=== PATIENT | female | born 1935 | race Caucasian/White ===

== ENCOUNTER 2017-12-11 08:40 | Outpatient (CLI) | payer MEDICARE, BC | END 2017-12-11 08:41 | disposition home or self-care (01) | LOC: BICMAMMO 08:40 | PROVIDERS: ATTEND Internal Medicine | DX: Z12.31 Encounter for screening mammogram for malignant neoplasm of breast (principal) | CPT/HCPCS: 77063; 77067 ==

== ENCOUNTER 2018-03-05 13:23 | Outpatient (CLI) | payer MEDICARE, BC ==
--- NOTE | 2018-03-05 18:20 | ULT ---
RENAL ULTRASOUND History: Renal calculi Comparison: None. Technique: Sagittal and transverse imaging of the kidneys performed. FINDINGS: There is bilateral renal cortical thinning. There appear to be bilateral parenchymal based echogenic foci which may represent nephrocalcinosis. No evidence of hydronephrosis. Right kidney measures 10.0 x 4.0 x 4.9 cm. Left kidney measures 9.3 x 4.2 x 4.8 cm. Urinary bladder is unremarkable. Bilateral ureteral jets are noted. IMPRESSION: 1. Bilaterally, no hydronephrosis. 2. Bilateral nephrolithiasis is suspected. Bilaterally, no evidence of hydronephrosis. POS: [facility]
--- NOTE | 2018-03-05 18:25 | ULT ---
THYROID ULTRASOUND: Date: 03/05/18 HISTORY: Thyroid nodule. COMPARISON: None. TECHNIQUE: Sagittal and transverse imaging of the thyroid gland is performed. FINDINGS: Thyroid isthmus measures 0.2 cm. Right thyroid lobe measures 1.3 x 1.8 x 4.5 cm. Left thyroid lobe measures 1.2 x 3.6 x 1.2 cm. In the mid aspect of the right thyroid lobe, there is a solid nodule measuring 1.6 x 1.2 x 1.0 cm. In the mid aspect of the left thyroid lobe, there is a 1.5 x 0.7 x 1.0 cm solid nodule. In the lower aspect of the thyroid lobe, there is a 0.8 x 0.4 x 0.5 cm solid nodule. IMPRESSION: 1. Solid nodule in the right thyroid lobe has a TIRADS calculator level of TR4. Moderately suspiciou s. Fine needle aspiration is recommended. 2. With regards to the solid nodules in the left thyroid lobe, follow-up imaging in 1 year is recomm ended. POS: [facility]
== END 2018-03-05 13:24 | disposition home or self-care (01) ==
LOC: ULT 13:23
PROVIDERS: ATTEND Internal Medicine
DX: N20.0 Calculus of kidney (principal); E04.2 Nontoxic multinodular goiter
CPT/HCPCS: 76536; 76770

== ENCOUNTER 2018-03-31 12:34 | Day surgery (SDC) | payer MEDICARE, BC ==
[2018-03-30 11:13] VITALS: BMI 27.4
[2018-03-31] MEDS ORDERED: Sodium Bicarbonate 2.5 MEQ/5 ML VIAL ONE (12:46)
[2018-03-31] MEDS ORDERED: Lidocaine 1% PF 5 ML VIAL ONE (12:46)
[2018-03-31 13:57] VITALS: BP 151/60; TEMP 97.9
--- NOTE | 2018-03-31 16:33 | ULT ---
SONOGRAPHIC GUIDED FINE NEEDLE ASPIRATION RIGHT THYROID LOBE MASS: Date 03/31/18 HISTORY: Calcified right thyroid lobe mass. FINDINGS: After explaining the procedure and answering all questions, the calcified lesion at the right thyroid lobe is again visualized. Sterile technique, buffered local anesthesia, sonographic guidance, and a medial approach were used to carefully advance a 25 gauge needle into the calcified mass. Fine needle aspirate was obtained and submitted to pathology for evaluation. A total of four passes were made. P ostprocedure imaging shows no evidence of complication. The patient tolerated the procedure well and was dismissed in good condition. IMPRESSION: Technically successful fine needle aspiration right thyroid lobe mass. Pathology is pending. POS: [facility]
== END 2018-03-31 13:40 | disposition home or self-care (01) ==
LOC: ULT 12:34
PROVIDERS: ATTEND Otolaryngology Plastic Surgery within the Head & Neck
PROC: 0G9H3ZX Drainage of Right Thyroid Gland Lobe, Percutaneous Approach, Diagnostic (ICD-10-PCS; principal; 2018-03-31)
DX: E04.1 Nontoxic single thyroid nodule (principal); J32.9 Chronic sinusitis, unspecified; E78.00 Pure hypercholesterolemia, unspecified; I10 Essential (primary) hypertension; M19.90 Unspecified osteoarthritis, unspecified site; E03.9 Hypothyroidism, unspecified; K21.9 Gastro-esophageal reflux disease without esophagitis; J30.9 Allergic rhinitis, unspecified; Z79.82 Long term (current) use of aspirin; Z79.899 Other long term (current) drug therapy; Z88.5 Allergy status to narcotic agent
CPT/HCPCS: 10022; 76942; 88173; J2001

== ENCOUNTER 2018-10-22 13:49 | Outpatient (CLI) | payer MEDICARE, BC ==
--- NOTE | 2018-10-22 14:28 | RAD ---
EXAM: XR Lumbar Spine 2 Or 3 View PROVIDED CLINICAL HISTORY: Low back pain COMPARISON: None FINDINGS: There are 5 nonrib-bearing lumbar-type vertebral bodies. The lateral view is rotated, there does appe ar to be slight grade 1 anterolisthesis of L4 on L5. There also appear to be slight retrolisthesis of L3 on L4. The vertebral body heights are within normal limits. There is mild narrowing of the inte rvertebral disc spaces at all levels lumbar spine with scattered osteophytes and facet degenerative changes present. No fracture is seen. Vascular calcifications are seen in the normal aorta and iliac arteries. Surgical clips overlie the upper abdomen on the lateral view as well as right lower quadrant. There is a circumscribed 10 mm oval-shaped calcification overlying the right upper quadrant . This cannot be further localized but does overlie the superior pole right renal shadow. The patient has had evidence of prior cholecystectomy on CT exam in 2008. This calcification was not seen on that study. IMPRESSION: 1. Oval-shaped calcification overlying the right upper quadrant which is difficult to further localiz e. Patient has had prior cholecystectomy. Calcification does overlie the superior pole right renal shadow. 2. Degenerative changes of the lumbar spine with grade 1 slight anterolisthesis of L4 on L5 and trace retrolisthesis of L3 on L4.
== END 2018-10-22 13:50 | disposition home or self-care (01) ==
LOC: RAD 13:49
PROVIDERS: ATTEND Internal Medicine
DX: M54.5 Low back pain (principal); N28.89 Other specified disorders of kidney and ureter; M47.816 Spondylosis without myelopathy or radiculopathy, lumbar region; M43.16 Spondylolisthesis, lumbar region; Z98.890 Other specified postprocedural states
CPT/HCPCS: 72100

== ENCOUNTER 2019-03-16 15:03 | Outpatient (CLI) | payer MEDICARE, BC ==
--- NOTE | 2019-03-16 15:43 | MMO ---
Bilateral MAMMO Bilat Screen [facility]. CLINICAL HISTORY: Patient is 83 years old and is seen for screening. The patient has no family history of breast cancer. The patient has no personal history of cancer. The patient has a history of right Excisional Biopsy - benign. VIEWS: The views performed were: bilateral craniocaudal with tomosynthesis and bilateral mediolateral oblique with tomosynthesis. FILMS COMPARED: The present examination has been compared to a prior imaging study performed at [facility] on 12/11/2017. This study has been interpreted with the assistance of computer-aided detection. MAMMOGRAM FINDINGS: There are scattered fibroglandular densities. Finding 1: There is an area of architectural distortion with associated post-surgical scar seen in the right breast. Finding 2: There are stable benign appearing calcifications seen in both breasts. Finding 3: There are stable benign appearing calcifications seen in both breasts. There are also vascular calcifications. There are no suspicious masses, suspicious calcifications, or new areas of architectural distortion. IMPRESSION: THERE IS NO MAMMOGRAPHIC EVIDENCE OF MALIGNANCY. A ROUTINE FOLLOW-UP MAMMOGRAM IN 1 YEAR IS RECOMMENDED. THE RESULTS OF THIS EXAM WERE SENT TO THE PATIENT. ACR BI-RADS Category 2 - Benign finding MAMMOGRAPHY NOTE: 1. A negative mammogram report should not delay a biopsy if a dominant of clinically suspicious mass is present. 2. Approximately 10% to 15% of breast cancers are not detected by mammography. 3. Adenosis and dense breasts may obscure an underlying neoplasm. Reported by: ABDOUL TAYLOR MD Electonically Signed: [id number]
== END 2019-03-16 15:04 | disposition home or self-care (01) ==
LOC: BICMAMMO 15:03
PROVIDERS: ATTEND Internal Medicine
DX: Z12.31 Encounter for screening mammogram for malignant neoplasm of breast (principal); Z91.89 Other specified personal risk factors, not elsewhere classified
CPT/HCPCS: 77063; 77067

== ENCOUNTER 2020-03-21 13:20 | Outpatient (CLI) | payer MEDICARE, BC ==
--- NOTE | 2020-03-21 14:34 | MMO ---
Bilateral MAMMO Bilat Screen [facility]. CLINICAL HISTORY: Patient is 84 years old and is seen for screening. The patient has no family history of breast cancer. The patient has no personal history of cancer. The patient has a history of right Excisional Biopsy - benign. VIEWS: The views performed were: bilateral craniocaudal with tomosynthesis and bilateral mediolateral oblique with tomosynthesis. FILMS COMPARED: The present examination has been compared to prior imaging studies performed at [facility] on 12/11/2017 and 03/16/2019, and at [facility] on 04/06/2015 and 06/06/2016. This study has been interpreted with the assistance of computer-aided detection. MAMMOGRAM FINDINGS: There are scattered fibroglandular densities. There are benign appearing calcifications seen in both breasts. Post op changes on right are stable. There are no suspicious masses, suspicious calcifications, or new areas of architectural distortion. IMPRESSION: THERE IS NO MAMMOGRAPHIC EVIDENCE OF MALIGNANCY. A ROUTINE FOLLOW-UP MAMMOGRAM IN 1 YEAR IS RECOMMENDED. THE RESULTS OF THIS EXAM WERE SENT TO THE PATIENT. ACR BI-RADS Category 2 - Benign finding MAMMOGRAPHY NOTE: 1. A negative mammogram report should not delay a biopsy if a dominant of clinically suspicious mass is present. 2. Approximately 10% to 15% of breast cancers are not detected by mammography. 3. Adenosis and dense breasts may obscure an underlying neoplasm. Reported by: SPENSER SPARROW MD Electonically Signed: [id number]
== END 2020-03-21 13:21 | disposition home or self-care (01) ==
LOC: BICMAMMO 13:20
PROVIDERS: ATTEND Physician Assistant
DX: Z12.31 Encounter for screening mammogram for malignant neoplasm of breast (principal); Z91.89 Other specified personal risk factors, not elsewhere classified
CPT/HCPCS: 77063; 77067

== ENCOUNTER 2021-02-27 04:43 | Inpatient (IN) | payer MEDICARE, BC ==
[2021-02-27] MEDS ORDERED: Pantoprazole 40 MG VIAL ONE (05:08)
[2021-02-27 05:40] LABS: #Eosinphils 0.3 thou/uL (0.0-0.7); #Lymphocytes 2.1 thou/uL (1.20-3.40); #Monocytes 0.6 thou/uL (0.11-0.59); #Neutrophils 6.8 thou/uL (1.40-6.50); %Basophils 0.3 % (0.0-1.0); %Eosinophils 2.8 % (0.0-10.0); %Lymphocytes 21.7 % (21.0-51.0); %Monocytes 6.2 % (0.0-10.0); Hemoglobin 9.3 g/dL (12.0-16.0); Mean Corpuscular HGB CONC 32.4 g/dL (32.0-36.0); Mean Corpuscular Volume 95.5 fL (78.0-98.0); Mean Platelet Volume 7.6 fL (7.4-10.4); Platelet Count 270 thou/uL (130-400); RBC Distribution Width 12.5 % (11.5-14.5); White Blood Cell (WBC) Count 9.9 thou/uL (4.8-10.8)
[2021-02-27 05:51] LABS: INR-International Normal Ratio 1.1; PTT 27.1 sec (22.9-36.1); Prothrombin Time 14.7 sec (12.0-14.7)
[2021-02-27 05:55] LABS: ALT (SGPT) 12 U/L (8-55); AST (SGOT) 17 U/L (5-34); Alkaline Phosphatase 39 U/L (40-110); Anion Gap 9 mmol/L (10-20); BUN (Urea Nitrogen) 50 mg/dL (9.8-20.1); Bilirubin, Total 0.4 mg/dL (0.2-1.2); Calc. Creatinine Clearance 0 mL/min (70-130); Calcium 8.2 mg/dL (7.8-10.44); Carbon Dioxide 22 mmol/L (23-31); Chloride 112 mmol/L (98-107); Glucose 124 mg/dL (83-110); Potassium 4.2 mmol/L (3.5-5.1); Sodium 139 mmol/L (136-145)
[2021-02-27] MEDS ORDERED: Ondansetron PF 4 MG/2 ML Vial IVP PRN (07:51)
[2021-02-27] MEDS ORDERED: Acetaminophen 325 MG TAB PO PRN (07:51)
[2021-02-27] MEDS ORDERED: Pantoprazole 80 MG in Sodium Chloride 0.9% 100 ML IVPB SCH (08:00)
[2021-02-27] MEDS ORDERED: Sodium Chloride 0.9% 1,000 ML IV SCH (08:00)
[2021-02-27 08:42] LABS: Hemoglobin 9.2 g/dL (12.0-16.0)
[2021-02-27 11:43] LABS: SARS-CoV-2 NAA Rapid Test Not Detected (NotDetected)
[2021-02-27] MEDS: Pantoprazole 80 MG, Admixture Fee 1 EACH in Sodium Chloride 0.9% 100 ML IVPB SCH (12:57)
[2021-02-27 15:03] VITALS: BMI 27.3
[2021-02-27 17:51] LABS: Hemoglobin 8.6 g/dL (12.0-16.0)
[2021-02-28] MEDS: Pantoprazole 80 MG, Admixture Fee 1 EACH in Sodium Chloride 0.9% 100 ML IVPB SCH (01:02)
[2021-02-28 07:32] LABS: #Basophils 0.1 thou/uL (0.0-0.2); #Eosinphils 0.1 thou/uL (0.0-0.7); #Lymphocytes 1.6 thou/uL (1.20-3.40); #Monocytes 0.5 thou/uL (0.11-0.59); #Neutrophils 6.7 thou/uL (1.40-6.50); %Basophils 0.6 % (0.0-1.0); %Eosinophils 1.5 % (0.0-10.0); %Monocytes 5.5 % (0.0-10.0); %Neutrophils 74.4 % (42.0-75.0); Mean Corpuscular HGB CONC 33.8 g/dL (32.0-36.0); Mean Corpuscular Hemoglobin 31.9 pg (27.0-31.0); Mean Corpuscular Volume 94.6 fL (78.0-98.0); Mean Platelet Volume 7.9 fL (7.4-10.4); Platelet Count 234 thou/uL (130-400); RBC Distribution Width 12.7 % (11.5-14.5)
[2021-02-28 07:51] LABS: ALT (SGPT) 11 U/L (8-55); AST (SGOT) 17 U/L (5-34); Albumin 3.1 g/dL (3.4-4.8); Alkaline Phosphatase 35 U/L (40-110); Anion Gap 11 mmol/L (10-20); BUN (Urea Nitrogen) 54 mg/dL (9.8-20.1); Bilirubin, Total 0.4 mg/dL (0.2-1.2); Calc. Creatinine Clearance 44 mL/min (70-130); Calcium 8.3 mg/dL (7.8-10.44); Carbon Dioxide 21 mmol/L (23-31); Chloride 117 mmol/L (98-107); Globulin 1.8 g/dL (2.4-3.5); Glucose 141 mg/dL (83-110); Potassium 4.6 mmol/L (3.5-5.1); Protein, Total 4.9 g/dL (5.8-8.1); Sodium 144 mmol/L (136-145)
[2021-02-28] MEDS ORDERED: PROPOFOL 200 MG/20 ML VIAL ONE (10:46)
[2021-02-28] MEDS ORDERED: Midazolam HCl 2 mg/2 ml Vial ONE (10:49)
[2021-02-28] MEDS ORDERED: Ketamine 50 MG/ML (10ML VIAL) ONE (10:49)
[2021-02-28] MEDS ORDERED: Sodium Chloride 0.9% 10 ML ONE (11:27)
[2021-02-28 15:24] LABS: Hemoglobin 8.8 g/dL (12.0-16.0)
[2021-02-28] MEDS: Pantoprazole 40 MG VIAL IVP SCH (21:01)
[2021-02-28 22:04] LABS: Hemoglobin 8.2 g/dL (12.0-16.0)
[2021-03-01 08:21] LABS: #Basophils 0.1 thou/uL (0.0-0.2); #Eosinphils 0.5 thou/uL (0.0-0.7); #Lymphocytes 2.2 thou/uL (1.20-3.40); #Monocytes 0.8 thou/uL (0.11-0.59); #Neutrophils 5.8 thou/uL (1.40-6.50); %Basophils 0.9 % (0.0-1.0); %Eosinophils 5.6 % (0.0-10.0); %Monocytes 8.6 % (0.0-10.0); %Neutrophils 61.9 % (42.0-75.0); Mean Corpuscular Hemoglobin 31.4 pg (27.0-31.0); Mean Corpuscular Volume 92.6 fL (78.0-98.0); Mean Platelet Volume 7.6 fL (7.4-10.4); Platelet Count 208 thou/uL (130-400); Red Blood Cell (RBC) Count 2.53 mill/uL (4.20-5.40); White Blood Cell (WBC) Count 9.3 thou/uL (4.8-10.8)
[2021-03-01 08:37] LABS: Anion Gap 8 mmol/L (10-20); BUN (Urea Nitrogen) 26 mg/dL (9.8-20.1); Calc. Creatinine Clearance 48 mL/min (70-130); Calcium 8.3 mg/dL (7.8-10.44); Carbon Dioxide 24 mmol/L (23-31); Chloride 117 mmol/L (98-107); Glucose 104 mg/dL (83-110); Potassium 4.1 mmol/L (3.5-5.1); Sodium 145 mmol/L (136-145)
[2021-03-01 08:46] VITALS: BP 147/69; TEMP 98.2
[2021-03-01] MEDS: Pantoprazole 40 MG VIAL IVP SCH (08:46)
[2021-03-01] MEDS ORDERED: Rosuvastatin 5 MG TAB PO SCH (21:00)
[2021-03-01] MEDS ORDERED: Metoprolol Tartrate 25 MG TAB PO SCH (21:00)
[2021-03-02] MEDS ORDERED: Amlodipine 5 MG TAB PO SCH (09:00)
== END 2021-03-01 17:24 | disposition home or self-care (01) | DRG 378 ==
LOC: ERS 04:43 → SUATTDRO 04:43 → ERHOLD 06:47 → T4-B 14:39 → OBSVTOIN 02-28 17:49
PROVIDERS: ADMIT Internal Medicine; ATTEND Internal Medicine
PROC: 0DB78ZX Excision of Stomach, Pylorus, Via Natural or Artificial Opening Endoscopic, Diagnostic (ICD-10-PCS; principal; 2021-02-28)
PROC: 30233N1 Transfusion of Nonautologous Red Blood Cells into Peripheral Vein, Percutaneous Approach (ICD-10-PCS; 2021-02-28)
DX: K25.4 Chronic or unspecified gastric ulcer with hemorrhage (principal); D62 Acute posthemorrhagic anemia; Z20.822 Contact with and (suspected) exposure to COVID-19; I10 Essential (primary) hypertension; E78.5 Hyperlipidemia, unspecified; K21.9 Gastro-esophageal reflux disease without esophagitis; I73.9 Peripheral vascular disease, unspecified; K44.9 Diaphragmatic hernia without obstruction or gangrene; Z95.828 Presence of other vascular implants and grafts; Z79.899 Other long term (current) drug therapy; Z79.82 Long term (current) use of aspirin; Z79.02 Long term (current) use of antithrombotics/antiplatelets; Z88.6 Allergy status to analgesic agent; Z87.11 Personal history of peptic ulcer disease
CPT/HCPCS: 36415; 36430; 71045; 74177; 80048; 80053; 82271; 82274; 84484; 85025; 85610; 85730; 86850; 86900; 86901; 88305; 88312; 93005; 93010; 96374; 96376; C9113; G0378; J2250; J2704; J3490; J7050; P9016; U0002

== ENCOUNTER 2021-03-29 12:51 | Outpatient (CLI) | payer MEDICARE, BC | END 2021-03-29 12:52 | disposition home or self-care (01) | LOC: BICMAMMO 12:51 | PROVIDERS: ATTEND Internal Medicine | DX: Z12.31 Encounter for screening mammogram for malignant neoplasm of breast (principal); Z91.89 Other specified personal risk factors, not elsewhere classified | CPT/HCPCS: 77063; 77067 ==

== ENCOUNTER 2021-04-30 09:23 | Emergency (ER) | payer MEDICARE, BC ==
[2021-04-30] MEDS ORDERED: Acetaminophen/Codeine 30-300mg Tablet ONE (11:50)
[2021-04-30 13:44] LABS: Bacteria/HPF 1+ HPF (None Seen); Bilirubin Negative (Negative); Blood, Urine Negative (Negative); Clarity Turbid (Clear); Glucose, Urine (Dipstick) Normal (Negative); Ketone, Urine Negative (Negative); Leukocyte 500 Leu/uL (Negative); Nitrite Negative (Negative); Protein, Urine (Dipstick) 20 mg/dL (Neg-Trace); Specific Gravity, Urine 1.029 (1.002-1.036); Urobilinogen Normal mg/dL (Less than 2); WBC/HPF Greater than 50 HPF (0-3); pH, Urine 5.5 (5.0-9.0)
== END 2021-04-30 14:06 | disposition home or self-care (01) ==
LOC: ERS 09:23
DX: M43.16 Spondylolisthesis, lumbar region (principal); N39.0 Urinary tract infection, site not specified; I10 Essential (primary) hypertension; E78.00 Pure hypercholesterolemia, unspecified; Z79.02 Long term (current) use of antithrombotics/antiplatelets; Z79.82 Long term (current) use of aspirin; Z79.899 Other long term (current) drug therapy
CPT/HCPCS: 72100; 81003; 81015; 87077; 87086; 87186

== ENCOUNTER 2021-05-07 10:22 | Emergency (ER) | payer MEDICARE, BC ==
[2021-05-07] MEDS ORDERED: Acetaminophen/Codeine 30-300mg Tablet ONE (13:48)
== END 2021-05-07 17:25 ==
LOC: ERS 10:22
DX: M54.50 Low back pain, unspecified (principal); R26.2 Difficulty in walking, not elsewhere classified; I10 Essential (primary) hypertension; E78.5 Hyperlipidemia, unspecified; E78.00 Pure hypercholesterolemia, unspecified; Z79.82 Long term (current) use of aspirin; Z79.02 Long term (current) use of antithrombotics/antiplatelets
CPT/HCPCS: 72131; 72192

== ENCOUNTER 2021-06-06 18:15 | Emergency (ER) | payer MEDICARE, BC ==
[2021-06-06] MEDS ORDERED: Morphine 4 MG/ML VIAL ONE (21:16)
[2021-06-06] MEDS ORDERED: Dexamethasone 4 mg/ml Vial ONE (23:10)
== END 2021-06-06 23:15 | disposition home or self-care (01) ==
LOC: ERS 18:15
DX: G89.29 Other chronic pain (principal); M54.50 Low back pain, unspecified; E78.5 Hyperlipidemia, unspecified; I10 Essential (primary) hypertension; Z79.899 Other long term (current) drug therapy; M54.16 Radiculopathy, lumbar region
CPT/HCPCS: 96372; 99283; J1100; J2270

== ENCOUNTER 2021-07-04 08:56 | Outpatient (CLI) | payer MEDICARE, BC ==
[2021-07-04 10:31] LABS: Hemoglobin 13.4 g/dL (12.0-15.5); Mean Corpuscular HGB CONC 31.1 g/dL (32.0-36.0); Mean Corpuscular Hemoglobin 30.1 pg (27.0-33.0); Mean Corpuscular Volume 96.9 fl (81.6-98.3); Mean Platelet Volume 10.2 fl (7.4-10.4); Platelet Count 319 10x3/uL (150-450); RBC Distribution Width 14.8 % (11.5-14.5); Red Blood Cell (RBC) Count 4.45 10x6/uL (3.90-5.03); White Blood Cell (WBC) Count 7.4 10x3/uL (3.5-10.5)
[2021-07-04 10:45] LABS: Anion Gap 15 mmol/L (10-20); BUN (Urea Nitrogen) 16 mg/dL (9.8-20.1); Calc. Creatinine Clearance 0 mL/min (70-130); Calcium 9.3 mg/dL (7.8-10.44); Carbon Dioxide 25 mmol/L (23-31); Chloride 105 mmol/L (98-107); Glucose 90 mg/dL (83-110); Potassium 4.2 mmol/L (3.5-5.1); Sodium 141 mmol/L (136-145)
[2021-07-04 17:42] LABS: SARS-CoV-2 PCR by NAA Not Detected (NotDetected)
== END 2021-07-04 08:57 | disposition home or self-care (01) ==
LOC: LABBT 08:56
PROVIDERS: ATTEND Neurological Surgery
DX: Z01.818 Encounter for other preprocedural examination (principal); M48.062 Spinal stenosis, lumbar region with neurogenic claudication; Z20.822 Contact with and (suspected) exposure to COVID-19
CPT/HCPCS: 80048; 85027; 93005; U0003; U0005; 93010

== ENCOUNTER 2021-07-09 07:53 | Inpatient (IN) | payer MEDICARE, BC ==
[2021-07-09] MEDS ORDERED: ceFAZolin 2 GM/Dextrose 50 ML IVPB ONE (11:44)
[2021-07-09] MEDS ORDERED: Ketamine 50 MG/ML (10ML VIAL) ONE (11:45)
[2021-07-09] MEDS ORDERED: Dexmedetomidine 200 MCG/2 ML VIAL ONE (11:45)
[2021-07-09] MEDS ORDERED: Fentanyl 100 MCG/2 ML VIAL ONE ×2 (11:54→14:00)
[2021-07-09] MEDS ORDERED: Glycopyrrolate 0.2 MG/ML 5 ML SYRINGE ONE (12:00)
[2021-07-09] MEDS ORDERED: Dexamethasone 20 MG/5 ML VIAL ONE (12:00)
[2021-07-09] MEDS ORDERED: Ondansetron PF 4 MG/2 ML Vial ONE (12:00)
[2021-07-09] MEDS ORDERED: Rocuronium Bromide 10 MG/ML (10ML VIAL) ONE (12:00)
[2021-07-09] MEDS ORDERED: PROPOFOL 200 MG/20 ML VIAL ONE (12:00)
[2021-07-09] MEDS ORDERED: Lidocaine 1% PF 5 ML VIAL ONE (12:00)
[2021-07-09] MEDS ORDERED: SUGAMMADEX SODIUM 200 MG/2 ML VIAL ONE (13:09)
[2021-07-09] MEDS ORDERED: Promethazine HCl 25 MG/ML VIAL IM PRN ×2 (13:46→15:45)
[2021-07-09] MEDS ORDERED: Ondansetron HCl/PF 4 MG/2 ML Vial IVP PRN (13:46)
[2021-07-09] MEDS ORDERED: Promethazine HCl 25 MG/ML VIAL IVPB PRN (13:46)
[2021-07-09] MEDS ORDERED: Morphine 4 MG/ML VIAL SLOW IVP PRN ×2 (15:39→15:45)
[2021-07-09] MEDS ORDERED: Ondansetron PF 4 MG/2 ML Vial IM PRN (15:40)
[2021-07-09] MEDS ORDERED: Cyclobenzaprine 10 MG TAB PO PRN (15:45)
[2021-07-09] MEDS ORDERED: Mag-Al 1200 mg/1200 mg/30 ML UDCUP PO PRN (15:45)
[2021-07-09] MEDS ORDERED: Milk Of Magnesia 30 ML UDCUP PO PRN (15:45)
[2021-07-09] MEDS ORDERED: diphenhydrAMINE 25 MG CAP PO PRN (15:45)
[2021-07-09] MEDS ORDERED: diphenhydrAMINE 50 MG/ML VIAL IVP PRN (15:45)
[2021-07-09] MEDS ORDERED: HYDROcodone/Acetaminophen 10/325 mg Tablet PO PRN (15:45)
[2021-07-09] MEDS ORDERED: traMADol HCl 50 MG TAB PO PRN ×2 (15:45)
[2021-07-09] MEDS ORDERED: Promethazine 25 MG TAB PO PRN (15:45)
[2021-07-09] MEDS ORDERED: Promethazine HCl 12.5 MG SUPP PR PRN (15:45)
[2021-07-09 15:48] VITALS: BMI 26.6
[2021-07-09] MEDS: Levothyroxine Sodium 88 MCG TAB PO SCH (16:01)
[2021-07-09] MEDS: Sodium Chloride 0.9% 1,000 ML IV SCH ×2 (16:38→21:21)
[2021-07-09] MEDS: HYDROcodone/Acetaminophen 10/325 mg Tablet PO PRN ×2 (16:46→21:29)
[2021-07-09] MEDS ORDERED: Bisacodyl 5 MG TAB PO PRN (19:11)
[2021-07-09] MEDS ORDERED: Acetaminophen 325 MG TAB PO PRN (19:11)
[2021-07-09] MEDS ORDERED: Ondansetron PF 4 MG/2 ML Vial IVP PRN (19:11)
[2021-07-09] MEDS ORDERED: hydrALAZINE 20 MG/ML VIAL SLOW IVP PRN (19:15)
[2021-07-09] MEDS ORDERED: Melatonin 3 MG TAB PO PRN (19:15)
[2021-07-09] MEDS ORDERED: Senokot S 8.6-50 MG TAB PO SCH (19:30)
[2021-07-09] MEDS ORDERED: Cholecalciferol 1,000 UNITS (25 MCG) TAB PO SCH (21:00)
[2021-07-09] MEDS: ceFAZolin 2 GM/Dextrose 50 ML 2 GM in Premix Bag 1 BAG IVPB SCH (21:21)
[2021-07-09] MEDS: Icosapent Ethyl 1 GM CAPSULE PO SCH (21:23)
[2021-07-09] MEDS: hydrALAZINE 10 MG TAB PO SCH (21:23)
[2021-07-10] MEDS: ceFAZolin 2 GM/Dextrose 50 ML 2 GM in Premix Bag 1 BAG IVPB SCH (03:17)
[2021-07-10] MEDS: HYDROcodone/Acetaminophen 10/325 mg Tablet PO PRN ×3 (03:17→14:41)
[2021-07-10] MEDS: Levothyroxine Sodium 88 MCG TAB PO SCH (06:26)
[2021-07-10] MEDS ORDERED: Vitamin E 400 UNITS CAP PO SCH (09:00)
[2021-07-10] MEDS ORDERED: Multivitamin W/ Minerals 1 TAB PO SCH (09:00)
[2021-07-10] MEDS ORDERED: Senokot S 8.6-50 MG TAB PO SCH (09:00)
[2021-07-10] MEDS ORDERED: Fluticasone Propionate Nasal Spray 16 gm Bottle NASAL SCH (09:00)
[2021-07-10] MEDS ORDERED: Amlodipine 5 MG TAB PO SCH (09:00)
[2021-07-10] MEDS: hydrALAZINE 10 MG TAB PO SCH (10:29)
[2021-07-10] MEDS: Icosapent Ethyl 1 GM CAPSULE PO SCH (10:30)
[2021-07-10 14:29] VITALS: BP 128/69; TEMP 98
== END 2021-07-10 15:27 | DRG 460 ==
LOC: SDC 07:53 → T4-B 14:55 → OBSVTOIN 07-10 09:26
PROVIDERS: ADMIT Neurological Surgery; ATTEND Neurological Surgery
PROC: 0SG1071 Fusion of 2 or more Lumbar Vertebral Joints with Autologous Tissue Substitute, Posterior Approach, Posterior Column, Open Approach (ICD-10-PCS; principal; 2021-07-09)
PROC: 01NB0ZZ Release Lumbar Nerve, Open Approach (ICD-10-PCS; 2021-07-09)
PROC: 3E0U0GB Introduction of Recombinant Bone Morphogenetic Protein into Joints, Open Approach (ICD-10-PCS; 2021-07-09)
DX: M48.062 Spinal stenosis, lumbar region with neurogenic claudication (principal); I10 Essential (primary) hypertension; E78.5 Hyperlipidemia, unspecified; Z20.822 Contact with and (suspected) exposure to COVID-19; K21.9 Gastro-esophageal reflux disease without esophagitis; M47.816 Spondylosis without myelopathy or radiculopathy, lumbar region; E03.9 Hypothyroidism, unspecified; I73.9 Peripheral vascular disease, unspecified; Z96.653 Presence of artificial knee joint, bilateral; Z90.49 Acquired absence of other specified parts of digestive tract
CPT/HCPCS: 76000; 96374; 96376; C1713; G0378; J0690; J1100; J2405; J2704; J3010; J3370; J7050

== ENCOUNTER 2021-07-25 12:33 | Outpatient (CLI) | payer MEDICARE, BC | END 2021-07-25 12:34 | disposition home or self-care (01) | LOC: TBSIIMAG 12:33 | PROVIDERS: ATTEND Neurological Surgery | DX: M48.062 Spinal stenosis, lumbar region with neurogenic claudication (principal); M47.816 Spondylosis without myelopathy or radiculopathy, lumbar region; M47.817 Spondylosis without myelopathy or radiculopathy, lumbosacral region; Z98.890 Other specified postprocedural states | CPT/HCPCS: 72100 ==

== ENCOUNTER 2022-04-01 13:46 | Outpatient (CLI) | payer MEDICARE, BC | END 2022-04-01 13:47 | disposition home or self-care (01) | LOC: BICMAMMO 13:46 | PROVIDERS: ATTEND Internal Medicine | DX: Z12.31 Encounter for screening mammogram for malignant neoplasm of breast (principal); Z91.89 Other specified personal risk factors, not elsewhere classified | CPT/HCPCS: 77063; 77067 ==

== ENCOUNTER 2023-04-02 12:56 | Outpatient (CLI) | payer MEDICARE, BC | END 2023-04-02 12:57 | disposition home or self-care (01) | LOC: BICMAMMO 12:56 | PROVIDERS: ATTEND Family Medicine | DX: Z12.31 Encounter for screening mammogram for malignant neoplasm of breast (principal); Z91.89 Other specified personal risk factors, not elsewhere classified | CPT/HCPCS: 77063; 77067 ==